=== PATIENT | male | born 1980 | race Caucasian/White ===

== ENCOUNTER 2019-09-25 19:06 | Emergency (ER) | payer BC ==
[~2019-09-25] VITALS: Ht 188 cm; Wt 106.6 kg
[2019-09-25] MEDS ORDERED: ALBUTEROL SULF 0.083% NEB SOLN 3 ML NEB NEB STA (19:31)
[2019-09-25] MEDS ORDERED: SODIUM CHLORIDE 0.9% 1000ML 1,000 ML IV STA (19:31)
[2019-09-25] MEDS ORDERED: IPRATROPIUM BROMIDE 0.02% 2.5 ML NEB NEB STA (19:31)
[2019-09-25] MEDS ORDERED: DEXAMETHASONE SOD PHOS 10 MG/1 ML VIAL IM ONE (19:45)
[2019-09-25] MEDS ORDERED: HYDROCODONE/CHLORPHENIRAMINE 5 ML LIQCR PO PRN (19:45)
[2019-09-25] MEDS ORDERED: CEFTRIAXONE SOD 1 GM/NS 50 ML 50 ML IV ONE (19:45)
[2019-09-25] MEDS ORDERED: AZITHROMYCIN 500MG/NS 250 ML 250 ML IV ONE (20:00)
[2019-09-25] MEDS ORDERED: IBUPROFEN 600 MG TAB PO ONE (20:00)
[2019-09-25 20:09] LABS: BASOPHILS % 0.3 % (0.0-1.0); EOSINOPHILS % 0.1 % (0.0-6.0); HEMOGLOBIN 13.8 g/dL (14.0-18.0); LYMPHOCYTES # (AUTO) 0.7 (1.0-3.2); LYMPHOCYTES % 8.5 % (18.0-39.1); MEAN CORPUSCULAR HEMOGLOBIN 31.4 pg (28-32); MEAN CORPUSCULAR HGB CONC 35.4 g/dL (31-35); MEAN CORPUSCULAR VOLUME 88.8 fL (81-99); MONOCYTES # (AUTO) 0.4 (0.2-0.8); MONOCYTES % 4.4 % (4.4-11.3); NEUTROPHILS # (AUTO) 7.5 (2.1-6.9); NEUTROPHILS % 86.1 % (38.7-80.0); PLATELET COUNT 194 x10e3/uL (140-360); RED BLOOD COUNT 4.39 x10e6/uL (4.3-5.7); RED CELL DISTRIBUTION WIDTH 11.4 % (11.7-14.4)
[2019-09-25 20:35] LABS: ALANINE AMINOTRANSFERASE 15 IU/L (0-55); ALBUMIN 3.6 g/dL (3.5-5.0); ALBUMIN/GLOBULIN RATIO 0.9 (0.8-2.0); ALKALINE PHOSPHATASE 55 IU/L (40-150); ANION GAP 15.5 mmol/L (8-16); BLOOD UREA NITROGEN 8 mg/dL (7-26); BUN/CREATININE RATIO 9 (6-25); CALCIUM 9.5 mg/dL (8.4-10.2); CARBON DIOXIDE 23 mmol/L (22-29); CHLORIDE 101 mmol/L (98-107); CREATININE, SERUM 0.87 mg/dL (0.72-1.25); EST GLOMERULAR FILTRATION RATE > 60 ML/MIN (60-); GLUCOSE 102 mg/dL (74-118); POTASSIUM 3.5 mmol/L (3.5-5.1); SODIUM 136 mmol/L (136-145)
--- NOTE | 2019-09-25 21:34 | Diagnostic Imaging Report ---
EXAMINATION: CHEST 2 VIEWS INDICATION: Fever. COMPARISON: None FINDINGS: TUBES and LINES: None. LUNGS: Lungs are well inflated. Bilateral bronchial wall thickening. No evidence of lobar pneumonia. PLEURA: No pleural effusion or pneumothorax. HEART AND MEDIASTINUM: The cardiomediastinal silhouette is unremarkable. BONES AND SOFT TISSUES: No acute osseous abnormality. UPPER ABDOMEN: No free air under the diaphragm. IMPRESSION: Bilateral bronchial wall thickening, which may reflect bronchitis. No evidence of pneumonia. Signed by: Dr. Issa Alba MD on 09/25/2019 9:31 PM
[2019-09-25] MEDS ORDERED: TYLENOL WITH C1 EACH PO (22:24)
[2019-09-25] MEDS ORDERED: LEVAQUIN500 MG PO (22:24)
[2019-09-25] MEDS ORDERED: PREDNISONE20 MG PO (22:24)
== END 2019-09-25 22:50 | disposition home or self-care (01) ==
LOC: ER 19:06
DX: R50.9 Fever, unspecified (principal); R05 Cough; Z87.19 Personal history of other diseases of the digestive system
CPT/HCPCS: 36415; 71046; 80053; 83605; 84484; 85025; 87040; 94640; 99284; J0456; J0696; J1100; J7030